=== PATIENT | female | born 2000 | race Caucasian/White ===

== ENCOUNTER 2021-05-07 01:01 | Emergency (ER) | payer OTHER ==
[~2021-05-07] VITALS: Ht 149.9 cm; Wt 86.2 kg
--- NOTE | 2021-05-07 01:33 | NUR ---
PT AAOX4. BIBSELF C/O HEADACHE S/P HITTING HER HEAD ON CAR DOOR ON 06/02 AND BACK OF HER HEAD ON SINK YESTERDAY.
[2021-05-07] MEDS ORDERED: IBUPROFEN 400 MG TABLET ONE (02:00)
[2021-05-07] MEDS ORDERED: IBUPROFEN 400 MG TABLET PO ONE (02:00)
[2021-05-07] MEDS ORDERED: ONDANSETRON 4 MG TAB.RAPDIS SL ONE (02:00)
[2021-05-07] MEDS ORDERED: ONDANSETRON 4 MG TAB.RAPDIS ONE (02:00)
--- NOTE | 2021-05-07 02:13 | NUR ---
taken to radiology
--- NOTE | 2021-05-07 04:51 | NUR ---
Patient discharged to home in stable condition. Written and verbal after care instructions given. Patient verbalizes understanding of instruction.
[2021-05-07 04:52] VITALS: BP 143/85
== END 2021-05-07 04:52 | disposition home or self-care (01) ==
LOC: ER 01:28
DX: S06.0X0A Concussion without loss of consciousness, initial encounter (principal); W22.8XXA Striking against or struck by other objects, initial encounter; Y93.89 Activity, other specified; Y92.89 Other specified places as the place of occurrence of the external cause; Y99.8 Other external cause status
CPT/HCPCS: 70450; 99284; Q0162